=== PATIENT | male | born 1970 | race Caucasian/White ===

== ENCOUNTER → 2022-02-22 10:55 | Outpatient (CLI) | payer OTHER, SELFPAY ==
--- NOTE | 2022-02-22 | DI.US.S_ITS ---
PROCEDURE: US SCROTUM INDICATIONS: SWELLING TECHNIQUE: Real-time scanning was performed of the scrotum and testicles, with image documentation. Color and pulse Doppler interrogation was performed of both testicles. COMPARISON: None. FINDINGS: Right: Testicle is normal in size at 4.4 x 3.5 x 3.1 cm, and homogenous in echotexture. Epididymis is unremarkable in overall size and morphology. A 2 mm epididymal head cyst is present. No varicocele. A hydrocele is present measuring up to 6.1 cm, approximate volume 33 cc. Mild mobile internal debris present. Overlying scrotal skin is normal in thickness. Left: Testicle is normal in size at 5.5 x 3.1 x 2.7 cm, and homogeneous in echotexture. Epididymis is not well visualized. No varicocele. A hydrocele is present measuring up to 10.4 cm, approximate volume is 277 cc. Mild mobile internal debris is present. Overlying scrotal skin is normal in thickness. Doppler: Color and pulse Doppler demonstrate normal and symmetric arterial flow in both testicles. IMPRESSION: 1. No evidence of testicular torsion. 2. Bilateral hydroceles are present, left larger than right. These are nonspecific. Internal debris also visualized within both hydroceles, also nonspecific. Correlation for any clinical evidence of infection or recent history of trauma may be helpful. Dictated by: Elpidio Farrell M.D. on 02/23/2022 at 12:21 Approved by: Elpidio Farrell M.D. on 02/23/2022 at 12:24
== END ==
PROVIDERS: PCP Family Medicine; Referring Provider Urology; Visit Provider Urology
DX: N43.3 Hydrocele, unspecified (principal)
CPT/HCPCS: 76870